=== PATIENT | female | born 1980 | race Caucasian/White ===

== ENCOUNTER → 2020-09-18 | Outpatient (CLI) | payer SELFPAY ==
[2020-09-21 21:19] LABS: HPV Reflexed? NOT INDICATED
== END | disposition home or self-care (01) ==
LOC: LABSPEC 09-19 08:43
PROVIDERS: Visit Provider Obstetrics & Gynecology
DX: Z12.4 Encounter for screening for malignant neoplasm of cervix (principal)
CPT/HCPCS: 88175; G0145

== ENCOUNTER 2020-10-23 11:49 | Day surgery (SDC) | payer SELFPAY ==
[2020-10-18 15:20] LABS: Hematocrit 35.4 % (37-47); Hemoglobin 11.7 g/dL (12.0-15.0); Mean Corp Hgb Conc 33.1 g/dL (32-36); Mean Corpuscular Hgb 30.4 pg (27.0-32.0); Mean Corpuscular Volume 91.9 fL (81-99); Mean Platelet Vol. 8.8 fl (6.2-12.0); Platelet Count 206 K/mm3 (150-450); RBC Distribution Width CV 13.1 % (11.6-14.6); RBC Distribution Width SD 43.8 fl (35.1-43.9); Red Blood Count 3.85 M/mm3 (4.2-5.4); White Blood Count 5.6 K/mm3 (4.4-11.0)
[2020-10-18 15:45] LABS: Partial Thromboplast Time 29.8 Seconds (24.1-36.2)
[2020-10-18 16:35] LABS: Thyroid Stim Hormone (TSH) 2.32 uIU/mL (0.358-3.74)
--- NOTE | 2020-10-22 13:23 | HP.PCM_ITS ---
History and Physical Date of Admission: 10/23/20 Surgical History and Physical Marii Billingsley, a 40 year old female 6 0 0 0 6, presents for Vaginal Hysterectomy and AP Repair on October 23, 2020 at 1:00. -- Worsening UV Prolapse, Cystocele, and Rectocele -- Prolapse Uterus which began 2007. Marii claims it started gradually and has been present worsening in last 2-3 years. It occurs intermittantly. It is located in the vagina. Marii characterizes it to be to the back. Marii characterizes the quality cramping.; Marii characterizes the quality pressure. Marii characterizes the quality low back ache. Severity is moderate and not improving MEDICATIONS HISTORY: ALLERGIES: NKDA, Milk and Hives and/or rash Infections - Chicken pox childhood Illnesses - Depression Accidents - None Hospitalizations - Childbirth and see surgery Review of Systems: GENERAL - Denies fever, or chills SKIN - Denies skin changes EYES - wears eye glasses EARS - Denies difficulty hearing NOSE - Denies nasal congestion or bleeding MOUTH - Denies sore throat or difficulty swallowing NECK - Denies pain or swelling RESPIRATORY - Denies shortness of breath or wheezing CARDIOVASCULAR - Denies palpitations or chest pain GASTROINTESTINAL - Denies nausea, vomiting, diarrhea, constipation GENITOURINARY - Denies dysuria, frequency of urination, incontinence of urine MUSCULOSKELETAL - Denies joint or muscle pain NEUROLOGICAL - Denies localized numbness or weakness PSYCHIATRIC - Denies depression or anxiety ENDOCRINE - Denies heat or cold intolerance, weight loss or gain HEMATO-IMMUNOLOGIC - Denies excesive bleeding with cuts SOCIAL HISTORY: Alcohol Use - denies drinking Smoking - denies smoking Diet - balanced Diet Lifestyle - moderate stress lifestyle and Exercise - active Seat Belt Use - always Employer - Unemployed 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 Father: Stomach Ulcers and Hypertension. Paternal Grandfather: Fatal [place]. MENSTRUAL HISTORY: LMP Known?- Approximate Amount/Duration - 6 days, Regularity - Regular, Frequency - monthly days, LMP - 10/13/20, Age Onset Menarche - 12 PAST PREGNANCIES: Total Pregnancies - 6; Full Term Pregnancies - 6; Premature - 0; Abortions, Induced - 0; Abortions, Spontaneous - 0; Ectopics - 0; Multiple Births - 0; Living Children - 6 SURGICAL HISTORY: 1. 07/07/2014 WILDER ; Pal Fung M.D. 2. T and A 3. cholecystectomy, 2006 4. Umbilical Hernia Repair 2006 PHYSICAL EXAM BP- 112/78 Sitting, Right arm, regular cuff Temp- 98.0 Taken Orally Weight- 110.40428 lbs Height- 63.25 inch BMI:19.37 CONSTITUTIONAL - NAD, well nourished, and well developed SKIN - No rash, lesions, or ulcers HEENT - Normocephalic, PERRLA, EOMI NECK - No nodes, no nuchal rigidity and thyroid normal size and texture LYMPH NODES - Palpation of lymph nodes in neck and groins within normal limits LUNGS - CTA x2 without wheezes, crackles or rales CARDIAC - Regular rate and rhythm without rubs, murmurs, or gallops ABDOMEN - Without hepatosplenomegaly, distention, masses, rebound, or guarding; normal bowel sounds; no hernias EXTREMITIES - No edema or calf tenderness NEUROLOGICAL - Cranial nerves II-XII grossly intact PSYCHIATRIC - A and O to time, place, person, mood and affect External Genital Vagina - non-tender without lesions Urethra/Urethral Meatus - non-tender Bladder - non-tender Vagina - vaginal su are pink and moist without loss of rugae and no evidence of atropy and rectocele 3 cm outside introitus; mild to moderate cystocele; open perineum Cervix - without cervical motion tenderness and has normal size and features without evident lesions and cervix prolapses to within 1-2 cm of the introitus Uterus - multiparous size 6 cm & wt 75-125 g Adnexa - clear without massess or tenderness ASSESSMENT/PLAN: 1. Cystocele Midline, Rectocele and Uterovag Prolapse Incomplete Very symptomatic. Discussed options for treatment including expectant management, pessary use or proceeding with Vag Hyst and AP Repair. Discussed each at length including RBAs of surgery and pt desires we proceed with the surgery.
[2020-10-23] VITALS (14 sets, daily range): BP systolic 88–125; BP diastolic 50–74; PULSE 60–105; RESP 16; TEMP 36.7–37.4; O2SAT 95–100; BMI 18.5
[2020-10-23] MEDS: Lactated Ringers 1,000 ML 100 ML IV (12:31)
[2020-10-23 12:36] LABS: Internal QC Validated? YES +Cl - CLEAR BKGD; Pregnancy, Urine Negative Negative
--- NOTE | 2020-10-23 13:00 | HYST_PTH ---
PATIENT: PAUL CAMPOS LOC: [facility] [place] U#:[id number] AGE/SX: 40/F ROOM: RE10/23/[address]: Dr. Pal Fung MD : 1980 BED: DIS: 10/24/2020 SPEC #: [id number] RECD: 10/23/20 15:24 STATUS: LINDA YANES #: [id number] ALESSANDRA: 10/23/20 13:[address]: Pal Fung DEPT: SURGICAL PATHOLOGY RECD BY: Rachel Cornell ENTERED: 10/24/20 07:59 SP TYPE: HYSTERECT OTHR DR: Dr. Tex Hoover MD Tissues: Uterus, NOS Procedures: Surgery Specimen Level V HEADER OPERATION: Vaginal hysterectomy, posterior repair PRE-OP DIAGNOSIS: Cystocele midline, rectocele and uterovaginal prolapse incomplete TISSUE SUBMITTED: Uterus, cervix, vaginal mucosa MICROSCOPIC DIAGNOSIS Uterus, cervix and vaginal mucosa, hysterectomy and posterior repair: Cervix - mild chronic cystic cervicitis. Endometrium - proliferative endometrium. Myometrium - focal superficial adenomyosis. Vaginal mucosa - fragments of squamous mucosa with mild chronic inflammation. DOUGLAS:tami 10/25/2020 MICROSCOPIC DESCRIPTION Slides are reviewed. GROSS DESCRIPTION Received in fixative is one container labeled with the patient's name and designated uterus, cervix and vaginal mucosa. The specimen consists of a hysterectomy specimen consisting of uterus with cervix and detached pieces of mucosal tissue. The uterus with cervix weighs 108 gm and measures 10.5 x 6.5 x 4.5 cm. The serosal surface is ramos, glistening. The ectocervical mucosa is unremarkable. The external os is oval in contour. The endocervical canal measures 3.5 cm in length and the endocervical mucosa is ramos, glistening and unremarkable. The triangular endometrial cavity measures 5 cm in length and 2.5 cm in width. Sections of the uterine wall do not reveal any mass lesion. Sections also reveal a portion of metallic coil/wire device, consistent with Essure device at both cornu. The uterine wall measures up to 2.5 cm in thickness. Also present in the container are two detached pieces of ramos mucosal tissue measuring in aggregate 6 x 3 x 0.3 cm. No mucosal lesion is identified. [employer] Consult[employer] sections are submitted in seven cassettes as follows: 1 - anterior cervix, 2 - posterior cervix, 3 & 4 - anterior uterine wall, 5 & 6 - posterior uterine wall, 7 - detached mucosal tissue. / DOUGLAS:tami 10/24/20 TC:5 CPT: 17977
[2020-10-23] MEDS: Cefotetan 2 GM in 0.9% NS 100 ML IV (13:21)
--- NOTE | 2020-10-23 13:31 | OP.PCM_ITS ---
Report of Operation Date of Procedure: 10/23/20 Pre-Operative Diagnosis: Incomplete Uterovaginal Prolapse, Cystocele, Rectocele Post-Operative Diagnosis: Incomplete Uterovaginal Prolapse, Rectocele Surgery/Procedure Performed:: Vaginal Hysterectomy and Posterior Repair Description of Surgical Findings:: 6 cm uterus with normal-appearing fallopian tubes and ovaries. Cervix protruded to within 1 cm of the vaginal introitus with tenaculum pulled down. Large and open perineum and rectocele which protruded 2 cm outside of the introitus. Minimal to no cystocele after vaginal hysterectomy was completed. Type of Anesthesia:: General - LMA Anesthesiologist: Phoebe Myrick Specimen's removed: Uterus and vaginal mucosa Drains: Lao to straight drain Estimated Blood Loss (mL): 200 cc Fluids Replaced: Crystalloid Description of Procedure: Surgeon: Pal Fung MD, FACOG Indications: This is a 40-year-old patient who is been having problems with the above symptoms. Conservative measures have not been helpful. Given this the patient desires that we proceed the above procedure. She has been counseled regarding the risk and indications of this procedure including the possibility of bleeding, infection, and injury to surrounding structures such as bowel jake dder. All questions were answered. Procedure: Patient was taken to the operating room where after induction of general anesthesia she was placed in the dorsal lithotomy position and prepped and draped in the usual sterile fashion. A Lao catheter was placed. Anterior cervix was grasped with a tenaculum and anterior cervix circumscribed with cautery on a setting of 35 W coagulation. Anterior vaginal mucosa was undermined and anterior peritoneum was easily entered. The posterior aspect of the cervix was circumscribed with a knife and posterior peritoneum easily entered. Progressive bites were taken on either side of the uterine cervix and each pedicle ligated with 0 Vicryl suture. Superior pedicles were ligated ?2 with 0 Vicryl suture and sidewall pedicles were examined and oversewn where necessary with [id number] 0 Vicryl suture to achieve hemostasis. Posterior vaginal cuff was oversewn with running locked 0 Vicryl suture. Hemostasis was noted and peritoneum was closed in a pursestring fashion incorporating superior pedicles into the stitch. Vaginal cuff was examined and a very minimal cystocele was noted. Given this the vaginal cuff was then closed side to side with interrupted [id number] 0 Vicryl suture. Hemostasis was noted. Attention was turned toward the posterior repair portion of the procedure. Remnants of the hymenal ring were grasped with Allises and a V-shaped incision was made in the perineum. Rectovaginal mucosa was then undermined divided and then imbricated toward the midline with interrupted 0 Vicryl suture. Vaginal mucosa was trimmed and then closed with running locked 2-0 chromic suture. Perineum was closed in the usual fashion with running and subcuticular, and [id number] 2-0 chromic suture. Hemostasis was noted. Lao catheter was again opened and clear yellow urine was noted. Vagina was packed with iodoform tape. Patient tolerated the procedure well was taken to recovery room in satisfactory condition; sponge instrument and needle counts were all reportedly correct. Estimated blood loss for the case was 200 cc. Cefotan 2 g IV was given prior to beginning the operative procedure. There were no apparent complications of the surgery. Specimen to pathology was uterus and vaginal mucosa. Grafts/Implants Used: None - Complications None - Admit VTE Documentation VTE Present on Admission: Yes VTE Mechan Device Prophylaxis: SCD's VTE Pharm Prophylaxis ordered?: Yes
--- NOTE | 2020-10-23 13:36 | PCM.DC.VHY ---
Discharge Diet: No Restrictions Discharge Activity: Return to Normal Activity, May Not Drive - while taking narcotic pain medications., May Shower May resume sexual activity in: 6-8 weeks Call your doctor if your incision/area has: Continuous Slow Oozing, Sudden Increased Bleeding, Increased Pain/ Swelling, Increased Redness, Foul Smelling Discharge Call your doctor if you observe: Fever of 101 or Higher, Inability to urinate, Inability to have a bowel movement, Using more than one pad per hour Allergies/Adverse Reactions: Allergies No Known Allergies Allergy (Verified 10/23/20 12:04) Medications to take at Discharge Cholecalciferol (Vitamin D3) [Vitamin D3] 5,000 iu PO DAILY 10/16/20 Garlic 1,000 mg PO DAILY PRN 10/16/20 Docusate Sodium [Colace] 100 mg PO BID PRN PRN #60 cap 10/23/20 Oxycodone [Oxyir] 5 mg PO Q6H PRN PRN 7 Days #10 tablet 10/23/20 The following prescriptions were given: Docusate Sodium [Colace] 100 mg PO BID PRN PRN #60 cap PRN Reason: Constipation Transmission Status: Pending to [facility] Oxycodone [Oxyir] 5 mg PO Q6H PRN PRN 7 Days #10 tablet PRN Reason: Pain Score 6-10 Transmission Status: Sent to [facility] Primary Care Physician: Tex Hoover MD [Primary Care Provider] - Test Results: Test results from this visit will be discussed in further detail at your follow-up appointment, if applicable. Please Follow Up With: Pal Fung MD When: 2-3 weeks
[2020-10-23] MEDS: Lactated Ringers 1,000 ML 120 ML IV ×3 (14:30→22:57)
[2020-10-23] MEDS: Ketorolac 30 MG/ML Syringe IV (18:14)
[2020-10-23] MEDS: Ondansetron ODT 4 MG Tablet PO (20:02)
[2020-10-23] MEDS: Docusate Sodium 100 MG Capsule PO (20:02)
[2020-10-23] MEDS: oxyCODONE 5 MG Tablet PO ×2 (20:02→22:50)
[2020-10-23] MEDS: Enoxaparin 30 MG/0.3 ML Syringe SC (20:36)
[2020-10-23] MEDS: Acetaminophen 500 MG Tablet 1000 MG PO (22:59)
[2020-10-24] MEDS: Ketorolac 30 MG/ML Syringe IV ×3 (00:30→11:04)
[2020-10-24 01:47] VITALS: BP 103/54; PULSE 76; RESP 16; TEMP 37.5; O2SAT 97
[2020-10-24 05:28] LABS: Hematocrit 26.7 % (37-47); Hemoglobin 8.6 g/dL (12.0-15.0); Mean Corp Hgb Conc 32.2 g/dL (32-36); Mean Corpuscular Hgb 29.8 pg (27.0-32.0); Mean Corpuscular Volume 92.4 fL (81-99); Mean Platelet Vol. 9.3 fl (6.2-12.0); Platelet Count 142 K/mm3 (150-450); RBC Distribution Width SD 44.3 fl (35.1-43.9); Red Blood Count 2.89 M/mm3 (4.2-5.4); White Blood Count 9.9 K/mm3 (4.4-11.0)
[2020-10-24 05:42] VITALS: BP 104/55; PULSE 74; RESP 16; TEMP 37.1; O2SAT 97
[2020-10-24 05:45] LABS: EST Glomerular Filtration Rate 116 mL/min (>60); Est Glom Filt Rate - Afr Amer 140 mL/min (>60); Estimated Creatinine Clearance 95.25 ml/min
[2020-10-24] MEDS: Acetaminophen 500 MG Tablet 1000 MG PO ×2 (05:49→11:33)
[2020-10-24] MEDS: 0.9% Saline Lock 10 ML Syringe IV ×2 (05:55→11:04)
--- NOTE | 2020-10-24 07:40 | PN.OBGYN_ITS ---
Subjective: Patient without complaints. Tolerating liquids well. Denies flatus. Minimal vaginal bleeding overnight. Denies any orthostatic changes. Objective: Vaginal pack removed. Good urine output and hemoglobin as expected for blood loss noted during surgery. Other vital signs stable. - Physical Exam Vitals/I&O's: Vital Signs Temp Pulse Resp BP Pulse Ox 98.8 F 74 16 104/55 L 97 10/24/20 05:42 10/24/20 05:42 10/24/20 05:42 10/24/20 05:42 10/24/20 05:42 Oxygen Delivery Method Room Air Weight: 107 lb 12.897 oz Body Mass Index (BMI) 18.5 Intake and Output for Last 24 Hours 10/22/20 10/23/20 10/24/20 23:59 23:59 23:59 Intake Total 2744 / 2944 1336 / 1336 Output Total 280 / 530 450 / 450 Balance 2464 / 2414 886 / 886 Laboratory Results 10/23/20 12:10: Urine Test Negative 10/24/20 05:12: WBC 9.9, RBC 2.89 L, Hgb 8.6 L, Hct 26.7 L, MCV 92.4, MCH 29.8, MCHC 32.2, RDW Std Deviation 44.3 H, RDW Coeff of Parag 13.0, Plt Count 142 L, MPV 9.3 10/24/20 05:12: Creatinine 0.60, Estim Creat Clear Calc 95.25, Est GFR (MDRD) Af Amer 140, Est GFR (MDRD) Non-Af 116 Current Medications Acetaminophen (Acetaminophen 500 Mg Tablet) 1,000 mg PO Q6 [facility] Last Admin: 10/24/20 05:49 Dose: 1,000 mg Documented by: Docusate Sodium (Docusate Sodium 100 Mg Capsule) 100 mg PO BID [facility] Last Admin: 10/23/20 20:02 Dose: 100 mg Documented by: Lactated Ringer's () 1,000 mls @ 120 mls/hr IV .[id number] [facility] Stop: 10/24/20 16:10 Last Infusion: 10/24/20 06:00 Dose: Infused Documented by: Sodium Chloride () 250 mls @ 15 mls/hr IV .[id number] PRN PRN Reason: Saline Flush Sodium Chloride () 250 mls @ 15 mls/hr IV .[id number] PRN PRN Reason: Additional IVPB Infusion Ketorolac Tromethamine (Ketorolac 30 Mg/Ml Syringe) 30 mg IV Q6 [facility] Stop: 10/25/20 00:01 Last Admin: 10/24/20 05:49 Dose: 30 mg Documented by: Magnesium Chloride (Magnesium Chloride 64 Mg Delay Rel.Tablet) 128 mg PO DAILY PRN PRN PRN Reason: Constipation Nutritional Formula (Lactose Free) (Ensure Enlive 120 Ml Liquid) 120 ml PO TIDCM [facility] Ondansetron HCl (Ondansetron Odt 4 Mg Tablet) 4 mg PO Q6H PRN PRN PRN Reason: NAUSEA Last Admin: 10/23/20 20:02 Dose: 4 mg Documented by: Oxycodone HCl (Oxycodone 5 Mg Tablet) 5 - 10 mg PO Q4H PRN PRN PRN Reason: Pain Score 4-10 Last Admin: 10/23/20 22:50 Dose: 5 mg Documented by: Sodium Chloride (0.9% Saline Lock 10 Ml Syringe) 10 - 40 ml IV UD PRN PRN Reason: SALINE FLUSH Last Admin: 10/24/20 05:55 Dose: 10 ml Documented by: Medical Necessity - Tobacco Use Smoking Status: Never smoker Assessment/Plan Doing well postoperative day #1 status post vaginal hysterectomy and posterior repair. Discussed need to use some supplemental iron for about 6 weeks at home. Will discharge home later today when tolerating diet well and able to void on own.
[2020-10-24 07:48] VITALS: BP 101/58; PULSE 69; RESP 14; TEMP 37; O2SAT 99
[2020-10-24 08:59] VITALS: O2SAT 99
--- NOTE | 2020-10-24 09:35 | NURSING ---
0845 Lao Cath discontinued. Pt instructed to call when needs to void. Tolerated procedure well.
--- NOTE | 2020-10-24 10:50 | PHA.DC.MC ---
Pharmacy Service has performed discharge medication reconciliation and counseling for this patient. 1. DOCUSATE 100MG PO BID PRN CONSTIPATION 2. OXYCODONE 5MG PO Q6H PRN PAIN 6-10 X 7 DAYS The patient's discharge medication list was reviewed for discrepancies and discrepancies were resolved. Home Medications Cholecalciferol (Vitamin D3) [Vitamin D3] 5,000 iu PO DAILY 10/16/20 Garlic 1,000 mg PO DAILY PRN 10/16/20 Docusate Sodium [Colace] 100 mg PO BID PRN PRN #60 cap 10/23/20 Oxycodone [Oxyir] 5 mg PO Q6H PRN PRN 7 Days #10 tab 10/23/20 The patient was counseled on the following discharge medications and changes in medications for homegoing were reviewed. The Reason for Use, instructions for use, and potential side effects were reviewed for all new medications. The patient's questions regarding all of their medications were answered. The patient was able to verbally demonstrate an understanding of their discharge medications.
[2020-10-24] MEDS: Docusate Sodium 100 MG Capsule PO (11:30)
[2020-10-24 11:48] VITALS: BP 100/60; PULSE 98; RESP 14; TEMP 37; O2SAT 99
[2020-10-24 12:45] VITALS: BP 97/57; PULSE 67; RESP 16; TEMP 36.9; O2SAT 96
== END 2020-10-24 13:34 | disposition home or self-care (01) ==
LOC: SDC 11:57 → AC 11:57 → MS3 10-24 11:02
PROVIDERS: Anesthesiology; PCP Family Medicine; Referring Provider Obstetrics & Gynecology; Visit Provider Obstetrics & Gynecology
PROC: (CPT 58260; principal; 2020-10-23 12:40)
DX: N81.2 Incomplete uterovaginal prolapse (principal); N80.0 Endometriosis of uterus; Z20.828 Contact with and (suspected) exposure to other viral communicable diseases
CPT/HCPCS: 58270; 36415; 81025; 82565; 82570; 84443; 85027; 85610; 85730; 86850; 86900; 86901; 87426; 88307; 99251; C9803; J7120; A4216; G0463; J2405

== ENCOUNTER → 2020-11-09 14:29 | Outpatient (CLI) | payer SELFPAY ==
[2020-10-23 17:55] VITALS: BMI 18.5
[2020-11-09 15:50] LABS: Absolute Lymphocyte Count 2.11 X10^3/uL (0.83-4.51); Absolute Neutrophil Count 8.8 X10^3/uL (2.0-7.7); Basophil# 0.04 X10^3/uL; Basophil% 0.3 % (0-1); Eosinophil# 0.05 X10^3/uL; Eosinophils% 0.4 % (0-5); Hematocrit 35.1 % (37-47); Hemoglobin 11.3 g/dL (12.0-15.0); Lymphocyte # 2.11 X10^3/ul (4.0); Lymphocyte % 17.7 % (19-41); Mean Corp Hgb Conc 32.2 g/dL (32-36); Mean Corpuscular Hgb 29.8 pg (27.0-32.0); Mean Corpuscular Volume 92.6 fL (81-99); Mean Platelet Vol. 9.2 fl (6.2-12.0); Monocyte# 0.83 X10^3/uL; NRBC Flagged by Analyzer 0 % (0-5); Neutrophil # 8.84 X10^3/uL (2.7-7.7); Neutrophil % 74.3 % (47-70); Platelet Count 340 K/mm3 (150-450); RBC Distribution Width CV 12.7 % (11.6-14.6); RBC Distribution Width SD 43.5 fl (35.1-43.9); Red Blood Count 3.79 M/mm3 (4.2-5.4); White Blood Count 11.9 K/mm3 (4.4-11.0)
[2020-11-09 15:55] LABS: POSITIVE COUNT NO; POSITIVE DIFFERENTIAL NO; POSITIVE MORPHOLOGY NO
[2020-11-09 16:09] LABS: ALB/GLOB Ratio 0.8 RATIO (0.9-2.4); AST(SGOT) 11 U/L (15-37); Alanine Aminotransfer ALT/SGPT 24 U/L (13-56); Albumin, Serum 3.3 g/dL (3.2-5.0); Alkaline Phosphatase 64 U/L (45-117); Anion Gap 3 (5-15); BUN 9 mg/dL (7-18); BUN/Creat Ratio 15.5 RATIO (10-20); Calcium,Total 8.8 mg/dL (8.5-10.1); Chloride 104 mmol/L (98-107); Creatinine, Serum 0.58 mg/dL (0.55-1.02); EST Glomerular Filtration Rate 122 mL/min (>60); Est Glom Filt Rate - Afr Amer 147 mL/min (>60); Globulin 4.2 g/dL (2.2-4.2); Glucose 97 mg/dL (74-106); Potassium 3.7 mmol/L (3.5-5.1); Protein, Total 7.5 g/dL (6.4-8.2); Sodium Level 138 mmol/L (136-145)
== END ==
PROVIDERS: PCP Family Medicine; Visit Provider Obstetrics & Gynecology
DX: R53.81 Other malaise (principal)
CPT/HCPCS: 36415; 80053; 85025